=== PATIENT | female | born 1990 | race African-American/Black ===

== ENCOUNTER 2019-11-19 20:30 | Emergency (ER) | payer OTHER ==
[~2019-11-19] VITALS: Ht 154.9 cm; Wt 59.9 kg
[2019-11-19 20:34] VITALS: BP 140/90
[2019-11-19] MEDS ORDERED: CLEOCIN HCL150 MG PO (21:17)
[2019-11-19] MEDS ORDERED: IBUPROFEN 800800 M1 PO (21:17)
== END 2019-11-19 21:29 | disposition home or self-care (01) ==
LOC: ER 20:30
DX: L02.31 Cutaneous abscess of buttock (principal); E10.9 Type 1 diabetes mellitus without complications; F17.210 Nicotine dependence, cigarettes, uncomplicated; Z88.2 Allergy status to sulfonamides

== ENCOUNTER 2021-03-11 15:10 | Emergency (ER) | payer OTHER ==
[~2021-03-11] VITALS: Ht 154.9 cm; Wt 59.9 kg
[~2021-03-11 15:10] MED LIST: CLEOCIN HCL150 MG PO; IBUPROFEN 800800 M1 PO
[2021-03-11 17:25] VITALS: BP 150/90
[2021-03-11] MEDS ORDERED: TYLENOL325 M1 PO (17:28)
[2021-03-11] MEDS ORDERED: KEFLEX250 MG PO (17:28)
[2021-03-11] MEDS ORDERED: NAPROSYN500 MG PO (17:28)
== END 2021-03-11 17:37 | disposition home or self-care (01) ==
LOC: ER 15:10
DX: N76.4 Abscess of vulva (principal); F17.210 Nicotine dependence, cigarettes, uncomplicated; E10.9 Type 1 diabetes mellitus without complications; Z88.2 Allergy status to sulfonamides